=== PATIENT | male | born 1975 | race Two or more races ===

== ENCOUNTER 2018-03-26 09:44 | Emergency (ER) | payer OTHER ==
[~2018-03-26] VITALS: Ht 188 cm; Wt 90.0 kg
[2018-03-26] MEDS ORDERED: ACETAMINOPHEN 500 MG TABLET PO ONE (10:00)
[2018-03-26] MEDS ORDERED: LIDOCAINE 1%, 2ML INFIL ONE (10:00)
[2018-03-26] MEDS ORDERED: PLEASE ENTER HEIGHT AND WEIGHT MC SCH (10:00)
[2018-03-26] MEDS ORDERED: PLEASE ENTER ALLERGIES MC SCH (10:00)
[2018-03-26] MEDS ORDERED: LIDOCAINE-MPF 1%, 5ML ONE (10:02)
[2018-03-26] MEDS ORDERED: BACITRACIN ZINC OINT 500U/GM, 0.9 GM ONE (10:45)
[2018-03-26] MEDS ORDERED: ACETAMINOPHEN 500 MG TABLET ONE (11:14)
[2018-03-26 11:36] VITALS: BP 139/72
== END 2018-03-26 11:39 | disposition home or self-care (01) ==
LOC: ED 11:10
DX: S06.0X0A Concussion without loss of consciousness, initial encounter (principal); S01.81XA Laceration without foreign body of other part of head, initial encounter; W22.8XXA Striking against or struck by other objects, initial encounter; Y92.410 Unspecified street and highway as the place of occurrence of the external cause; Y99.8 Other external cause status
CPT/HCPCS: 12051; 70450; 99284

== ENCOUNTER 2018-04-18 22:37 | Emergency (ER) | payer OTHER ==
[~2018-04-18] VITALS: Ht 188 cm; Wt 86.2 kg
[2018-04-18 22:42] VITALS: BP 105/58
== END 2018-04-19 00:25 | disposition home or self-care (01) ==
LOC: ED 23:24
DX: R55 Syncope and collapse (principal); R42 Dizziness and giddiness; F07.81 Postconcussional syndrome
CPT/HCPCS: 99283